=== PATIENT | male | born 1985 | race African-American/Black ===

== ENCOUNTER 2017-06-07 09:41 | Emergency (ER) | payer OTHER ==
[2017-06-07] MEDS ORDERED: ONDANSETRON ODT 4 MG TABLET TL STA (10:26)
--- NOTE | 2017-06-07 10:28 | ED Physician Documentation ---
History of Present Illness - Stated complaint Stated Complaint: VOMITING/DIARRHEA - Chief complaint Chief Complaint: Fever - Additonal information Additional information: hx from pt 32 AD [place] male NVD since last night no blood in either feels exhausted has a HAMMOND doubt bad food as son ate same and is OK no known sick contacts last foreign travel was deployment to [employer] and [place] but he returned 2 m ago Review of Systems Constitutional: reports: Fatigue. denies: Fever Cardiac: denies: Chest pain / pressure Respiratory: denies: Cough GI: reports: Vomiting, Diarrhea. denies: Bloody / black stool Neurologic: reports: Generalized weakness Endocrine: denies: Easy bruising / bleeding Immunocompromised: denies: Immunocompromised PD PAST MEDICAL HISTORY - Present Medications Home Medications: Ambulatory Orders Medication Instructions Recorded Confirmed Albuterol 06/07/17 Cetirizine [ZyrTEC] 06/07/17 Ondansetron Odt [Zofran] 4 mg TL Q6H PRN #10 tablet 06/07/17 - Allergies Allergies/Adverse Reactions: Allergies Allergy/AdvReac Type Severity Reaction Status Date / Time nickel Allergy Rash Verified 06/07/17 09:54 PD ED PE NORMAL - Vitals Vital signs reviewed: Yes - General General: Alert and oriented X 3 - Neck Neck: Supple, no meningeal sign - Cardiac Cardiac: RRR - Respiratory Respiratory: No respiratory distress, Clear bilaterally - Abdomen Abdomen: Soft, Other (midl TTP no focal and no peritoneal signs) - Derm Derm: Normal color - Neuro Neuro: Alert and oriented X 3 Results - Vitals Vitals: Vital Signs - 24 hr 06/07/17 09:49 Temperature 37.8 C H Heart Rate 108 H Respiratory 18 Rate Blood Pressure 130/81 H O2 Saturation 96 Oxygen O2 Source Room air Departure - Departure Disposition: 01 Home, Self Care Clinical Impression: Gastroenteritis Condition: Good Instructions: ED Gastroenteritis Viral Follow-Up: [facility] [Provider Group] Prescriptions: Ondansetron Odt [Zofran] 4 mg TL Q6H PRN #10 tablet PRN Reason: Nausea / Vomiting Comments: It sounds like this is a viral stomach flu You need krystle rest and drink plenty of fluids I have prescribed zofran to ease the vomiting so you can stay hydrated Follow up at [facility] if not better in 3 days Return to the ER of worse Forms: Activity restrictions
[2017-06-07 11:24] VITALS: BP 125/87
== END 2017-06-07 11:40 | disposition home or self-care (01) ==
LOC: ED 09:41
DX: K52.9 Noninfective gastroenteritis and colitis, unspecified (principal)
CPT/HCPCS: 99283; Q0162

== ENCOUNTER 2018-03-28 20:51 | Emergency (ER) | payer OTHER ==
--- NOTE | 2018-03-28 21:20 | ED Physician Documentation ---
PD HPI ABD PAIN - Stated complaint Stated Complaint: LOWER BACK/ABD PX - Chief complaint Chief Complaint: UTI - History obtained from History obtained from: Patient - History of Present Illness Timing - onset: Other (This is a 33-year-old gentleman who a few years ago had pyelonephritis with symptoms similar to his current symptoms. He is uncircumcised. 3 days ago he developed lower abdominal and flank pain more right than left with chills. It went away but recurred tonight. A few years ago when he had this he had hematuria but that has not happened with this episode. The chills did not recur.) Review of Systems Constitutional: reports: Chills. denies: Fever Cardiac: denies: Chest pain / pressure, Palpitations Respiratory: denies: Dyspnea, Cough GI: denies: Nausea, Vomiting, Constipation, Diarrhea : reports: Dysuria PD PAST MEDICAL HISTORY - Past Medical History Past Medical History: No Cardiovascular: None Respiratory: Asthma Neuro: None Endocrine/Autoimmune: None GI: None : None HEENT: None Psych: None Musculoskeletal: None Derm: None - Past Surgical History Past Surgical History: No - Present Medications Home Medications: Ambulatory Orders Medication Instructions Recorded Confirmed Albuterol 06/07/17 Cetirizine [ZyrTEC] 06/07/17 Ciprofloxacin HCl [Cipro] 500 mg PO BID #20 tablet 03/28/18 Hydrocodone/Acetaminophen 1 - 2 each PO Q6H PRN #7 tablet 03/28/18 [Hydrocodon-Acetaminophen 5-325] - Allergies Allergies/Adverse Reactions: Allergies Allergy/AdvReac Type Severity Reaction Status Date / Time nickel Allergy Rash Verified 03/28/18 21:03 - Social History Does the pt smoke?: No Smoking Status: Never smoker Does the pt drink ETOH?: Yes Does the pt have substance abuse?: No - Immunizations Immunizations are current?: Yes - POLST Patient has POLST: No PD ED PE NORMAL - Vitals Vital signs reviewed: Yes - General General: Alert and oriented X 3, No acute distress - Abdomen Abdomen: Normal bowel sounds, Soft, Non tender - Male Male : Other (Prostate Nontender) - Back Back: Other (mild R flank TTP) - Neuro Neuro: Alert and oriented X 3, Normal speech - Psych Psych: Normal mood, Normal affect Results - Vitals Vitals: Vital Signs - 24 hr 03/28/18 20:58 Temperature 36.5 C Heart Rate 77 Respiratory 18 Rate Blood Pressure 146/95 H O2 Saturation 99 Oxygen O2 Source Room air - Labs Labs: Laboratory Tests 03/28/18 21:50 Urine Color YELLOW Urine Clarity HAZY Urine pH 5.5 Ur Specific [place] 1.025 Urine Protein NEGATIVE Urine Glucose (UA) NEGATIVE Urine Ketones NEGATIVE Urine Occult Blood SMALL H Urine Nitrite POSITIVE H Urine Bilirubin NEGATIVE Urine Urobilinogen 0.2 (NORMAL) Ur Leukocyte Esterase SMALL H Urine RBC 6-10 H Urine WBC >25 H Ur Squamous Epith Cells RARE Squamous Urine Bacteria Few Ur Microscopic Review INDICATED Urine Culture Comments INDICATED Departure - Departure Disposition: Home, Self Care Clinical Impression: UTI (urinary tract infection) Qualifiers: Urinary tract infection type: acute cystitis Hematuria presence: without hematuria Qualified Code(s): N30.00 - Acute cystitis without hematuria Condition: Good Record reviewed to determine appropriate education?: Yes Instructions: ED UTI Cystitis Male Prescriptions: Ciprofloxacin HCl [Cipro] 500 mg PO BID #20 tablet Hydrocodone/Acetaminophen [Hydrocodon-Acetaminophen 5-325] 1 - 2 each PO Q6H PRN #7 tablet PRN Reason: pain Comments: We will culture your urine, the results should be done in 48-72 hours. If an antibiotic change is necessary we will call you. Return if worse in the meantime, especially if you develop increasing flank pain, fevers, or cannot keep down the medication. [place]. Your blood pressure was elevated today on check into the emergency department. This does not mean that you have hypertension, it is a common phenomenon to come to the emergency department and have elevated blood pressure. I recommend that you see your primary care physician within the week to have it rechecked when you are feeling better.
[2018-03-28] MEDS: IBUPROFEN 800 MG TABLET PO STA ×2 (21:23→21:24)
[2018-03-28 21:56] LABS: BILIRUBIN,URINE NEGATIVE (NEGATIVE); GLUCOSE, URINE (UA) NEGATIVE (NEGATIVE); KETONES,URINE (UA) NEGATIVE (NEGATIVE); LEUKOCYTE ESTERASE, URINE SMALL (NEGATIVE); NITRITE,URINE POSITIVE (NEGATIVE); OCCULT BLOOD,URINE SMALL (NEGATIVE); PH,URINE 5.5 PH (5.0-7.5); PROTEIN,URINE NEGATIVE (NEGATIVE); UROBILINOGEN,URINE 0.2 (NORMAL) E.U./dL (NORMAL)
[2018-03-28 22:10] LABS: CLARITY,URINE HAZY (CLEAR); SQUAMOUS EPITHELIAL CELL,UR RARE Squamous (<= Few)
[2018-03-28 22:11] LABS: BACTERIA,URINE Few /HPF (None Seen)
[2018-03-28] MEDS ORDERED: CIPROFLOXACIN 250 MG TABLET PO STA (22:19)
[2018-03-28] MEDS ORDERED: HYDROcod/ACET 5/325 Prepack 4 PO STA (22:20)
[2018-03-28 22:32] VITALS: BP 142/95
== END 2018-03-28 22:32 | disposition home or self-care (01) ==
LOC: ED 20:51
DX: N30.00 Acute cystitis without hematuria (principal); R03.0 Elevated blood-pressure reading, without diagnosis of hypertension
CPT/HCPCS: 81001; 87086; 87181; 99283; A9270; 81003